=== PATIENT | male | born 1965 | race Two or more races ===

== ENCOUNTER 2016-11-08 09:38 | Day surgery (SDC) | payer BC ==
[2016-11-08] MEDS ORDERED: D5 LR 1000 ML 1,000 ML IV ONE (10:02)
[2016-11-08] MEDS ORDERED: DIPRIVAN VIAL 20 ML ONE (11:12)
[2016-11-08 12:24] VITALS: BP 122/80
== END 2016-11-08 11:53 | disposition home or self-care (01) ==
LOC: SURG1 09:38
PROVIDERS: ATTEND Internal Medicine Gastroenterology
PROC: 0DJ08ZZ Inspection of Upper Intestinal Tract, Via Natural or Artificial Opening Endoscopic (ICD-10-PCS; principal; 2016-11-08 12:30)
PROC: 0DB88ZX Excision of Small Intestine, Via Natural or Artificial Opening Endoscopic, Diagnostic (ICD-10-PCS; principal; 2016-11-08 12:30)
PROC: 0DB68ZX Excision of Stomach, Via Natural or Artificial Opening Endoscopic, Diagnostic (ICD-10-PCS; principal; 2016-11-08 12:30)
DX: R10.11 Right upper quadrant pain (principal); R10.13 Epigastric pain; K29.60 Other gastritis without bleeding
CPT/HCPCS: A4217; J3490; J7120

== ENCOUNTER 2016-11-15 08:33 | Day surgery (SDC) | payer BC ==
[2016-11-15] MEDS ORDERED: D5 LR 1000 ML 1,000 ML IV ONE (09:01)
[2016-11-15] MEDS ORDERED: DIPRIVAN VIAL 20 ML ONE (10:15)
[2016-11-15 14:08] VITALS: BP 127/78
== END 2016-11-15 11:00 | disposition home or self-care (01) ==
LOC: SURG1 08:33
PROVIDERS: ATTEND Internal Medicine Gastroenterology
PROC: 0DBN8ZX Excision of Sigmoid Colon, Via Natural or Artificial Opening Endoscopic, Diagnostic (ICD-10-PCS; principal; 2016-11-15 10:45)
PROC: 0DJD8ZZ Inspection of Lower Intestinal Tract, Via Natural or Artificial Opening Endoscopic (ICD-10-PCS; principal; 2016-11-15 10:45)
DX: Z12.11 Encounter for screening for malignant neoplasm of colon (principal); K63.5 Polyp of colon; K57.30 Diverticulosis of large intestine without perforation or abscess without bleeding; K64.0 First degree hemorrhoids; D12.5 Benign neoplasm of sigmoid colon
CPT/HCPCS: A4217; J3490; J7120

== ENCOUNTER → 2017-01-22 | Outpatient (CLI) | payer BC ==
--- NOTE | 2017-01-22 09:58 | US ---
HISTORY: Chronic right upper quadrant pain Study: Right upper quadrant ultrasound Comparison: None Technique: Multiple grayscale sonographic images were obtained. Findings: The liver was normal in size and configuration and without cysts, mass, or biliary ductal dilatation . The echogenicity of the hepatic parenchyma was increased suggestive of diffuse fatty infiltration. No gallstones are present within the gallbladder. Gallbladder wall thickness was normal. The common duct measured 4.6 millimeters. The pancreas was obscured by overlying bowel gas. The right kidney m easured 10 x 5 x 4.6 centimeters and demonstrated no solid masses, hydronephrosis, stones, or perine phric fluid collections. IMPRESSION: No evidence for cholelithiasis or cholecystitis. Fatty infiltration of the liver Reported By:
== END ==
LOC: RAD 09:27
PROVIDERS: ATTEND Internal Medicine Gastroenterology
DX: R10.11 Right upper quadrant pain (principal)
CPT/HCPCS: 76705